=== PATIENT | male | born 1960 | race Caucasian/White ===

== ENCOUNTER → 2017-02-05 | Outpatient (CLI) | payer OTHER ==
[~2017-02-05] MED LIST: CHOLESTEROL FIG1 CAP PO; COMPLEXED POTAS99 MG PO; FISH OIL1000 MG PO; LISINOPRIL20 MG PO; METFORMIN500 MG PO; METOPROLOL SUCC50 M2 PO; NOMEDS XX; NORCO1 TAB PO
--- NOTE | 2017-02-05 10:59 | RADIOLOGY REPORT PS360 ---
ELBOW-LT-3 VIEWS HISTORY: Follow-up fracture ORTHOPEDIC AFTERCARE ORDERING PHYSICIAN: Kemar Madrigal MD PATIENT AGE: 56 years COMPARISON: 12/07/2016 FINDINGS: Bone plate remains in place along the posterior and proximal ulna stabilizing comminuted fracture at the base of the olecranon process. There is good alignment. There remains lucency at the fracture site anteriorly. IMPRESSION: Overall no change status post ORIF left proximal ulnar fracture with good alignment .
== END ==
LOC: RAD 09:43
DX: Z47.89 Encounter for other orthopedic aftercare (principal)